=== PATIENT | male | born 1965 | race American Indian/Alaskan Native ===

== ENCOUNTER 2019-05-31 11:31 | Emergency (ER) | payer OTHER ==
--- NOTE | 2019-05-31 11:46 | Emergency Department Report ---
<ALEJO BERGER - Last Filed: 05/31/19 11:42> ED General Adult HPI - General Chief complaint: Extremity Injury, Lower Stated complaint: RT ANKLE PAIN/SWELLING/PAIN Source: patient Mode of arrival: Ambulatory Limitations: No Limitations - History of Present Illness Initial comments: 54 yo male states that he has R ankle pain that started Thursday05/29/19 after he picked at a wound. He further states that he previously had a piece of glass stuck in his ankle. The pt verbalizes that his pain is an 8 of 10. For pain, he took Tylenol 100mg with no relief. Severity scale (0 -10): 8 - Related Data Previous Rx's Medication Instructions Recorded Last Taken Type Naproxen [Naprosyn] 500 mg PO BID PRN #15 tablet 08/10/18 Unknown Rx Tamsulosin HCl [Flomax] 0.4 mg PO DAILY #30 cap.er.24h 08/10/18 Unknown Rx traMADol [Ultram 50 MG tab] 50 mg PO Q6HR PRN #10 tablet 05/31/19 Unknown Rx Allergies Allergy/AdvReac Type Severity Reaction Status Date / Time No Known Allergies Allergy Verified 05/31/19 11:36 ED Past Medical Hx - Past Medical History Previous Medical History?: Yes Hx Heart Attack/AMI: Yes (NO HX HTN PER PT. NOT ON BP MEDS) Additional medical history: Right shoulder, PVD, TURP, ARTHRITIS, 8 CARDIAC STENTS, AFIB, WAS ON COUMADIN BUT MD STOPPED IT AND PUT PT ON ASPIRIN. TOLD HE MAY NEED A PPM. NSTEMI IN PAST. - Surgical History Past Surgical History?: Yes Hx Coronary Stent: Yes Hx Open Heart Surgery: Yes - Social History Smoking Status: Never Smoker Substance Use Type: Alcohol - Medications Home Medications: Home Medications Medication Instructions Recorded Confirmed Last Taken Type Naproxen [Naprosyn] 500 mg PO BID PRN #15 tablet 08/10/18 Unknown Rx Tamsulosin HCl [Flomax] 0.4 mg PO DAILY #30 cap.er.24h 08/10/18 Unknown Rx traMADol [Ultram 50 MG tab] 50 mg PO Q6HR PRN #10 tablet 05/31/19 Unknown Rx ED Physical Exam - General Limitations: No Limitations ED Disposition Clinical Impression: Right foot pain, Wound of right foot, Elevated liver enzymes Disposition: DC-01 TO HOME OR SELFCARE Condition: Stable Instructions: Arthralgia (ED) Additional Instructions: Please follow-up with your primary care physician in the next few days. I am also giving you a referral for 2 different local podiatrists regarding your foot pain. Continue taking the antibiotics that you were previously prescribed. Clean the area with soap and water and then make sure it remains dry. Return to the emergency Department with any worsening of your symptoms or any acute dis tress. You have been prescribed a medication that is sedating and therefore should not be taken prior to driving, working, and responsible for children and in no way should be mixed with alcohol of any quantity. Prescriptions: traMADol [Ultram 50 MG tab] 50 mg PO Q6HR PRN #10 tablet PRN Reason: Pain Referrals: PRIMARY CAREMD [Primary Care Provider] - 2-3 Days ASA GONZALEZ MD [Staff Physician] - 2-3 Days PRESTON TROY DPM [Staff Physician] - 2-3 Days <JANA WANG - Last Filed: 05/31/19 15:08> ED General Adult HPI - History of Present Illness Initial comments: This patient presents to the emergency department with a few days of some soreness to the right foot, worst to the top of the foot. The patient also had some type of a eschar or lesion that formed towards the right medial ankle over the past few days. At some point overnight or this morning, this eschar opened up and was bleeding as he woke up with blood on the comforter. There is a small ulceration or wound to this area. The patient wonders if there could be some type of foreign body within the foot as he says he stepped on a beer bottle a few years ago. He denies any recent injury or trauma. He went to [facility] on Thursday for similar complaints, except for the bleeding, and was placed on Tylenol and antibiotics. He has a past mental history of coronary artery disease with cardiac stents, reveals atrial fibrillation. No recent tra anant or sick contacts at home. ED Review of Systems ROS: Stated complaint: RT ANKLE PAIN/SWELLING/PAIN Other details as noted in HPI Comment: All other systems reviewed and negative Constitutional: denies: chills, fever Musculoskeletal: arthralgia, myalgia Skin: lesions. denies: pruritus Neurological: denies: numbness, paresthesias ED Course Vital Signs 05/31/19 11:37 Temperature 97.8 F Pulse Rate 79 Respiratory 18 Rate Blood Pressure 136/102 [Right] O2 Sat by Pulse 100 Oximetry ED Medical Decision Making - Lab Data Result diagrams: 05/31/19 13:45 05/31/19 13:45 Critical care attestation.: If time is entered above; I have spent that time in minutes in the direct care of this critically ill patient, excluding procedure time. ED Disposition Is pt being admited?: No Time of Disposition: 15:08
--- NOTE | 2019-05-31 12:27 | XRay Report ---
RIGHT ANKLE, 3 VIEWS INDICATION: ankle injury and foreign body. COMPARISON: None. IMPRESSION: No acute osseous or soft tissue abnormality. No significant DJD. No radiopaque foreig n body is identified on x-ray. Signer Name: Danielito Figueroa Jr, MD Signed: 05/31/2019 12:23 PM Workstation Name: [id number]
[2019-05-31] MEDS ORDERED: NORCO 5/325 PO ONE (12:58)
--- NOTE | 2019-05-31 13:54 | Vascular Lab Report ---
. DUPLEX DOPPLER LOWER EXTREMITY VEINS, RIGHT INDICATION: Right lower extremity pain for 2 months which got worse this morning. TECHNIQUE: Duplex doppler imaging was performed through the veins of the right lower extremity using venous compression and other maneuvers. COMPARISON: No relevant prior imaging study available. FINDINGS: Right Common femoral vein: Negative. Right Superficial femoral vein: Negative. Right Popliteal vein: Negative. Right Calf veins: Negative. Additional findings: None.. IMPRESSION: No sonographic evidence for DVT in the right lower extremity. Signer Name: Danielito Figueroa Jr, MD Signed: 05/31/2019 1:50 PM Workstation Name: [id number]
[2019-05-31 14:46] LABS: Alanine Aminotransferase 75 units/L (7-56); Albumin 4.2 g/dL (3.9-5); BUN/Creatinine Ratio 12; Blood Urea Nitrogen 12 mg/dL (9-20); Calcium 9.5 mg/dL (8.4-10.2); Hemolysis Index 7
[2019-05-31 14:53] LABS: Basophils % (Auto) 0.4 % (0.0-1.8); Eosinophils # (Auto) 0.1 K/mm3 (0.0-0.4); Eosinophils % (Auto) 1.8 % (0.0-4.3); Hematocrit 44.5 % (35.5-45.6); Hemoglobin 14.4 gm/dl (11.8-15.2); Lymphocytes # (Auto) 2.1 K/mm3 (1.2-5.4); Lymphocytes % (Auto) 43.4 % (13.4-35.0); Mean Corpuscular HGB Conc 32 % (32-34); Mean Corpuscular Volume 85 fl (84-94); Monocytes # (Auto) 0.4 K/mm3 (0.0-0.8); Monocytes % (Auto) 9.2 % (0.0-7.3); Platelet Count 157 K/mm3 (140-440); Red Blood Count 5.21 M/mm3 (3.65-5.03); Red Cell Distribution Width 13.9 % (13.2-15.2)
[2019-05-31 15:15] VITALS: BP 137/90
== END 2019-05-31 15:48 | disposition home or self-care (01) ==
LOC: ED 11:31
DX: S91.301A Unspecified open wound, right foot, initial encounter (principal); R74.8 Abnormal levels of other serum enzymes; I25.2 Old myocardial infarction; Z95.5 Presence of coronary angioplasty implant and graft; Z98.890 Other specified postprocedural states; W25.XXXA Contact with sharp glass, initial encounter; Y93.89 Activity, other specified; Y92.89 Other specified places as the place of occurrence of the external cause; Y99.8 Other external cause status
CPT/HCPCS: 36415; 80053; 85025

== ENCOUNTER 2021-04-12 10:14 | Emergency (ER) | payer SELFPAY ==
[2021-04-12 10:43] VITALS: BP 174/120
== END 2021-04-12 14:55 | disposition left against medical advice (07) ==
LOC: ED 10:14
DX: M79.89 Other specified soft tissue disorders (principal); Z53.21 Procedure and treatment not carried out due to patient leaving prior to being seen by health care provider